=== PATIENT | male | born 1930 | race Caucasian/White ===

== ENCOUNTER 2022-03-05 17:54 | Inpatient (IN) | payer MEDICARE ==
[2022-03-05] MEDS ORDERED: Cefepime 2 GM VIAL ONE (18:28)
[2022-03-05] MEDS ORDERED: Azithromycin 500 MG VIAL ONE (18:28)
[2022-03-05 18:38] LABS: Hemoglobin 11.5 g/dL (13.5-17.5); Mean Corpuscular HGB CONC 34.2 g/dL (32.0-36.0); Mean Corpuscular Hemoglobin 30.6 pg (27.0-33.0); Mean Corpuscular Volume 89.4 fl (81.2-95.1); Mean Platelet Volume 10.4 fl (7.4-10.4); Platelet Count 112 10x3/uL (150-450); RBC Distribution Width 13.6 % (11.5-14.5); Red Blood Cell (RBC) Count 3.76 10x6/uL (4.32-5.72); White Blood Cell (WBC) Count 32.6 10x3/uL (3.5-10.5)
[2022-03-05 18:49] LABS: ALT (SGPT) 31 U/L (8-55); AST (SGOT) 24 U/L (5-34); Albumin 3.4 g/dL (3.4-4.8); Alkaline Phosphatase 88 U/L (40-110); Anion Gap 13 mmol/L (10-20); BUN (Urea Nitrogen) 21 mg/dL (8.4-25.7); Bilirubin, Total 1.2 mg/dL (0.2-1.2); Calc. Creatinine Clearance 0 mL/min (70-130); Calcium 9.2 mg/dL (7.8-10.44); Carbon Dioxide 26 mmol/L (23-31); Chloride 102 mmol/L (98-107); Estimated GFR 50; Globulin 2.9 g/dL (2.4-3.5); Glucose 143 mg/dL (83-110); Potassium 2.8 mmol/L (3.5-5.1); Protein, Total 6.3 g/dL (5.8-8.1); Sodium 138 mmol/L (136-145)
[2022-03-05 19:12] LABS: CKMB 1.6 ng/mL (0-6.6)
[2022-03-05 19:30] LABS: Bilirubin Neg (Negative); Blood, Urine 50 (Negative); Clarity Clear (Clear); Glucose, Urine (Dipstick) Normal (Negative); Ketone, Urine Negative (Negative); Leukocyte 100 (Negative); Nitrite Negative (Negative); Protein, Urine (Dipstick) 100 mg/dl (Neg-Trace); Urobilinogen Normal mg/dL (Less than 2)
[2022-03-05 19:40] LABS: Squamous Epithelial 0-3 HPF (0-3); WBC/HPF 0-3 HPF (0-3)
[2022-03-05 19:41] LABS: Bacteria/HPF 1+ HPF (None Seen); Mucous/LPF Rare LPF (<2+)
[2022-03-05] MEDS ORDERED: Potassium Chloride 20 MEQ/100 ML PREMIX BAG ONE (19:49)
[2022-03-05 20:02] LABS: SARS-CoV-2 NAA Rapid Test Not Detected (NotDetected)
[2022-03-05 20:03] LABS: Band 18 % (5-11); Lymphocytes 1 % (21-51); Monocytes 13 % (0-10); Reactive Lymphocytes 2 % (0-10)
[2022-03-05 20:07] LABS: Neutrophil 66 % (42-75)
[2022-03-05 20:12] LABS: Anisocytosis SLIGHT = 6-15 cells (100X) (0-5/hpf); Burr Cells SLIGHT = 2-5 cells (100X) (0-1/hpf); Microcytosis SLIGHT = 6-15 cells (100X) (0-5/hpf); Poikilocytosis SLIGHT = 6-15 cells (100X) (0-5/hpf)
[2022-03-05 20:13] LABS: Platelet Morphology Comment Appears Decreased
[2022-03-05 20:14] LABS: Giant Platelets SLIGHT; Hypersemented Neutrophil SLIGHT; Large Platelets SLIGHT; Vacuoles SLIGHT
[2022-03-05 20:15] LABS: MDiff Complete? YES
[2022-03-05 22:26] VITALS: BMI 20.1
[2022-03-06] MEDS ORDERED: Communication Order-Pharmacy FS PRN (00:48)
[2022-03-06] MEDS ORDERED: Calcium Carbonate 500 MG ChewTAB PO PRN (00:50)
[2022-03-06] MEDS ORDERED: Acetaminophen 325 MG TAB PO PRN (00:50)
[2022-03-06] MEDS ORDERED: Senokot S 8.6-50 MG TAB PO PRN (00:50)
[2022-03-06] MEDS ORDERED: GUAIFENESIN SF SOLN 200 MG/10 ML UDCUP PO SCH (01:00)
[2022-03-06] MEDS ORDERED: Potassium Chloride 10 MEQ in Premix Bag 1 BAG IVPB SCH (01:30)
[2022-03-06] MEDS ORDERED: Potassium Chloride 20 MEQ TAB PO SCH (01:30)
[2022-03-06 05:33] LABS: Hemoglobin 10.1 g/dL (13.5-17.5); Mean Corpuscular HGB CONC 34.2 g/dL (32.0-36.0); Mean Corpuscular Hemoglobin 31.4 pg (27.0-33.0); Mean Corpuscular Volume 91.6 fl (81.2-95.1); Mean Platelet Volume 10.4 fl (7.4-10.4); Platelet Count 93 10x3/uL (150-450); RBC Distribution Width 13.6 % (11.5-14.5); Red Blood Cell (RBC) Count 3.22 10x6/uL (4.32-5.72); White Blood Cell (WBC) Count 28.6 10x3/uL (3.5-10.5)
[2022-03-06 05:37] LABS: Anion Gap 12 mmol/L (10-20); BUN (Urea Nitrogen) 20 mg/dL (8.4-25.7); Calc. Creatinine Clearance 36 mL/min (70-130); Calcium 8.4 mg/dL (7.8-10.44); Carbon Dioxide 23 mmol/L (23-31); Chloride 106 mmol/L (98-107); Estimated GFR 60; Glucose 93 mg/dL (83-110); Potassium 3.7 mmol/L (3.5-5.1); Sodium 137 mmol/L (136-145)
[2022-03-06] MEDS: Levothyroxine Sodium 75 MCG TAB PO SCH (05:41)
[2022-03-06 06:30] LABS: Bilirubin Neg (Negative); Blood, Urine 25 (Negative); Clarity Clear (Clear); Glucose, Urine (Dipstick) 50 mg/dL (Negative); Ketone, Urine Negative (Negative); Leukocyte 25 (Negative); Nitrite Negative (Negative); Protein, Urine (Dipstick) 30 mg/dl (Neg-Trace); Urobilinogen Normal mg/dL (Less than 2)
[2022-03-06 06:32] LABS: MDiff Complete? YES
[2022-03-06 06:42] LABS: Bacteria/HPF 1+ HPF (None Seen); Squamous Epithelial 0-3 HPF (0-3)
[2022-03-06 06:44] LABS: Legionella Urinary Ag Negative (Negative); Strep pneumo Urine Ag NEGATIVE (NEGATIVE)
[2022-03-06 06:44] LABS: Magnesium 1.5 mg/dL (1.6-2.6)
[2022-03-06] MEDS: Ipratropium/Albuterol 3 ML NEB NEB SCH ×3 (07:40→18:53)
[2022-03-06] MEDS ORDERED: Magnesium 2 GM/50 ML(in water) 2 GM in Premix Bag 1 BAG IVPB SCH (08:00)
[2022-03-06 08:01] LABS: Band 6 % (5-11); Lymphocytes 11 % (21-51); Monocytes 14 % (0-10); Neutrophil 67 % (42-75); Reactive Lymphocytes 2 % (0-10)
[2022-03-06 08:04] LABS: Platelet Morphology Comment Appears Decreased; RBC Morphology Normal
[2022-03-06] MEDS: Mometasone/Formoterol 200/5 60 PUFF INH SCH ×2 (08:05→18:58)
[2022-03-06 08:30] LABS: Troponin I 0.052 ng/mL (< 0.028)
[2022-03-06] MEDS: Atorvastatin Calcium 40 MG TAB PO SCH (09:47)
[2022-03-06] MEDS: Metoprolol Tartrate 25 MG TAB PO SCH ×2 (09:47→20:12)
[2022-03-06] MEDS: Aspirin 81 mg Enteric Coated Tablet PO SCH (09:47)
[2022-03-06] MEDS: Clopidogrel Bisulfate 75 MG TAB PO SCH (09:47)
[2022-03-06] MEDS: guaiFENesin ER 600 MG TAB PO SCH ×2 (09:47→20:13)
[2022-03-06 10:44] LABS: Magnesium 1.5 mg/dL (1.6-2.6)
[2022-03-06 12:55] LABS: SARS-CoV-2 NAA Rapid Test Not Detected (NotDetected)
[2022-03-06] MEDS ORDERED: Azithromycin 500 MG VIAL ONE (19:59)
[2022-03-06] MEDS ORDERED: Sodium Chloride 0.9% 250 ML 250 ML ONE (19:59)
[2022-03-06] MEDS: cefTRIAXone\\ROCEPHIN 2 GM in Sodium Chloride 0.9% 100 ML IVPB SCH (20:14)
[2022-03-06] MEDS: Azithromycin 500 MG in Sodium Chloride 0.9% 250 ML 250 ML IVPB SCH (21:42)
[2022-03-07] MEDS: Ipratropium/Albuterol 3 ML NEB NEB SCH ×5 (01:55→19:25)
[2022-03-07 05:28] LABS: Anion Gap 13 mmol/L (10-20); BUN (Urea Nitrogen) 22 mg/dL (8.4-25.7); Calc. Creatinine Clearance 37 mL/min (70-130); Calcium 8.5 mg/dL (7.8-10.44); Carbon Dioxide 21 mmol/L (23-31); Chloride 108 mmol/L (98-107); Estimated GFR 60; Glucose 88 mg/dL (83-110); Potassium 3.3 mmol/L (3.5-5.1); Sodium 139 mmol/L (136-145)
[2022-03-07 05:53] LABS: Hemoglobin 9.8 g/dL (13.5-17.5); Mean Corpuscular HGB CONC 33.8 g/dL (32.0-36.0); Mean Corpuscular Hemoglobin 30.6 pg (27.0-33.0); Mean Corpuscular Volume 90.6 fl (81.2-95.1); Mean Platelet Volume 10.8 fl (7.4-10.4); Platelet Count 93 10x3/uL (150-450); RBC Distribution Width 13.7 % (11.5-14.5); White Blood Cell (WBC) Count 12.6 10x3/uL (3.5-10.5)
[2022-03-07] MEDS: Benzonatate 100 MG CAP PO PRN (06:23)
[2022-03-07] MEDS: Levothyroxine Sodium 75 MCG TAB PO SCH (06:23)
[2022-03-07 06:47] LABS: MDiff Complete? YES
[2022-03-07 06:48] LABS: Platelet Morphology Comment Appears Decreased
[2022-03-07 06:49] LABS: Anisocytosis MODERATE=16-30 cells (100X) (0-5/hpf); Hypochromia SLIGHT = 6-15 cells (100X) (0-5/hpf)
[2022-03-07 06:50] LABS: Burr Cells MODERATE= 6-15 cells (100X) (0-1/hpf); Vacuoles MODERATE
[2022-03-07 06:53] LABS: Band 5 % (5-11); Lymphocytes 14 % (21-51); Monocytes 8 % (0-10); Neutrophil 73 % (42-75)
[2022-03-07] MEDS: Mometasone/Formoterol 200/5 60 PUFF INH SCH ×2 (07:00→19:26)
[2022-03-07] MEDS: Atorvastatin Calcium 40 MG TAB PO SCH (08:08)
[2022-03-07] MEDS: guaiFENesin ER 600 MG TAB PO SCH ×2 (08:08→21:07)
[2022-03-07] MEDS: Metoprolol Tartrate 25 MG TAB PO SCH ×2 (08:08→21:07)
[2022-03-07] MEDS: Aspirin 81 mg Enteric Coated Tablet PO SCH (08:08)
[2022-03-07] MEDS: Clopidogrel Bisulfate 75 MG TAB PO SCH (08:08)
[2022-03-07 09:32] LABS: Magnesium 1.9 mg/dL (1.6-2.6)
[2022-03-07] MEDS ORDERED: Potassium Chloride 20 MEQ TAB PO SCH (10:00)
[2022-03-07] MEDS ORDERED: Amlodipine 5 MG TAB PO SCH (10:00)
[2022-03-07] MEDS ORDERED: cloNIDine 0.1 MG TAB PO SCH (18:00)
[2022-03-07] MEDS: cefTRIAXone\\ROCEPHIN 2 GM in Sodium Chloride 0.9% 100 ML IVPB SCH (21:08)
[2022-03-07] MEDS: Azithromycin 500 MG in Sodium Chloride 0.9% 250 ML 250 ML IVPB SCH (21:09)
[2022-03-08] MEDS: Ipratropium/Albuterol 3 ML NEB NEB SCH ×4 (02:12→17:27)
[2022-03-08 04:52] LABS: Hemoglobin 9.8 g/dL (13.5-17.5); Mean Corpuscular HGB CONC 33.8 g/dL (32.0-36.0); Mean Corpuscular Hemoglobin 30.5 pg (27.0-33.0); Mean Corpuscular Volume 90.3 fl (81.2-95.1); Mean Platelet Volume 10.9 fl (7.4-10.4); Platelet Count 101 10x3/uL (150-450); RBC Distribution Width 13.7 % (11.5-14.5); Red Blood Cell (RBC) Count 3.21 10x6/uL (4.32-5.72); White Blood Cell (WBC) Count 10.7 10x3/uL (3.5-10.5)
[2022-03-08 04:55] LABS: Anion Gap 14 mmol/L (10-20); BUN (Urea Nitrogen) 16 mg/dL (8.4-25.7); Calc. Creatinine Clearance 39 mL/min (70-130); Calcium 8.6 mg/dL (7.8-10.44); Carbon Dioxide 24 mmol/L (23-31); Chloride 107 mmol/L (98-107); Estimated GFR 65; Glucose 90 mg/dL (83-110); Potassium 3.6 mmol/L (3.5-5.1); Sodium 141 mmol/L (136-145)
[2022-03-08] MEDS: Levothyroxine Sodium 75 MCG TAB PO SCH (04:57)
[2022-03-08 05:26] LABS: MDiff Complete? YES
[2022-03-08 06:28] LABS: Band 2 % (5-11); Eosinophils 2 % (0-10); Lymphocytes 16 % (21-51); Monocytes 8 % (0-10); Neutrophil 72 % (42-75)
[2022-03-08 06:30] LABS: Anisocytosis SLIGHT = 6-15 cells (100X) (0-5/hpf); Burr Cells MODERATE= 6-15 cells (100X) (0-1/hpf); Platelet Morphology Comment Appears Decreased
[2022-03-08] MEDS: Mometasone/Formoterol 200/5 60 PUFF INH SCH ×2 (07:27→17:27)
[2022-03-08] MEDS: Benzonatate 100 MG CAP PO PRN ×2 (08:56→22:13)
[2022-03-08] MEDS: Clopidogrel Bisulfate 75 MG TAB PO SCH (08:56)
[2022-03-08] MEDS: Aspirin 81 mg Enteric Coated Tablet PO SCH (08:56)
[2022-03-08] MEDS: Metoprolol Tartrate 25 MG TAB PO SCH ×2 (08:56→20:35)
[2022-03-08] MEDS: guaiFENesin ER 600 MG TAB PO SCH ×2 (08:56→20:36)
[2022-03-08] MEDS: Atorvastatin Calcium 40 MG TAB PO SCH (08:56)
[2022-03-08] MEDS: cefTRIAXone\\ROCEPHIN 2 GM in Sodium Chloride 0.9% 100 ML IVPB SCH (20:36)
[2022-03-08] MEDS: Azithromycin 500 MG in Sodium Chloride 0.9% 250 ML 250 ML IVPB SCH (22:06)
[2022-03-09] MEDS: Ipratropium/Albuterol 3 ML NEB NEB SCH ×4 (00:10→19:01)
[2022-03-09 05:16] LABS: Hemoglobin 10.6 g/dL (13.5-17.5); Mean Corpuscular HGB CONC 34.1 g/dL (32.0-36.0); Mean Corpuscular Hemoglobin 30.5 pg (27.0-33.0); Mean Corpuscular Volume 89.4 fl (81.2-95.1); Mean Platelet Volume 10.6 fl (7.4-10.4); Platelet Count 134 10x3/uL (150-450); RBC Distribution Width 14.1 % (11.5-14.5); Red Blood Cell (RBC) Count 3.48 10x6/uL (4.32-5.72); White Blood Cell (WBC) Count 13.3 10x3/uL (3.5-10.5)
[2022-03-09 05:27] LABS: Anion Gap 12 mmol/L (10-20); BUN (Urea Nitrogen) 16 mg/dL (8.4-25.7); Calc. Creatinine Clearance 39 mL/min (70-130); Calcium 9.3 mg/dL (7.8-10.44); Carbon Dioxide 25 mmol/L (23-31); Chloride 107 mmol/L (98-107); Estimated GFR 64; Glucose 93 mg/dL (83-110); Potassium 3.7 mmol/L (3.5-5.1); Sodium 140 mmol/L (136-145)
[2022-03-09 05:46] LABS: MDiff Complete? YES
[2022-03-09 05:50] LABS: Band 5 % (5-11); Eosinophils 2 % (0-10); Lymphocytes 17 % (21-51); Metamyelocyte 4 % (0-0); Monocytes 6 % (0-10); Myelocyte 2 % (0-0); Neutrophil 64 % (42-75)
[2022-03-09 05:51] LABS: Platelet Morphology Comment Appears Adequate
[2022-03-09 05:52] LABS: RBC Morphology Normal
[2022-03-09] MEDS: Metoprolol Tartrate 25 MG TAB PO SCH ×2 (06:31→20:46)
[2022-03-09] MEDS: Levothyroxine Sodium 75 MCG TAB PO SCH (06:42)
[2022-03-09] MEDS: Mometasone/Formoterol 200/5 60 PUFF INH SCH ×2 (07:38→19:03)
[2022-03-09] MEDS: Clopidogrel Bisulfate 75 MG TAB PO SCH (09:10)
[2022-03-09] MEDS: Atorvastatin Calcium 40 MG TAB PO SCH (09:11)
[2022-03-09] MEDS: Amlodipine 5 MG TAB PO SCH (09:11)
[2022-03-09] MEDS: Aspirin 81 mg Enteric Coated Tablet PO SCH (09:11)
[2022-03-09] MEDS: guaiFENesin ER 600 MG TAB PO SCH ×2 (09:11→20:46)
[2022-03-09] MEDS ORDERED: Bisacodyl 10 MG SUPP PR SCH (10:30)
[2022-03-09] MEDS ORDERED: Fleet Enema 133 ML BOT PR SCH (10:30)
[2022-03-09] MEDS ORDERED: Fleet Enema 133 ML BOT ONE ×2 (11:07)
[2022-03-09] MEDS: cefTRIAXone\\ROCEPHIN 2 GM in Sodium Chloride 0.9% 100 ML IVPB SCH (20:46)
[2022-03-09] MEDS: Azithromycin 500 MG in Sodium Chloride 0.9% 250 ML 250 ML IVPB SCH (20:46)
[2022-03-10] MEDS: Ipratropium/Albuterol 3 ML NEB NEB SCH ×3 (00:19→14:00)
[2022-03-10 05:38] LABS: Hemoglobin 10.6 g/dL (13.5-17.5); Mean Corpuscular HGB CONC 34.1 g/dL (32.0-36.0); Mean Corpuscular Hemoglobin 30.4 pg (27.0-33.0); Mean Corpuscular Volume 89.1 fl (81.2-95.1); Mean Platelet Volume 9.9 fl (7.4-10.4); Platelet Count 134 10x3/uL (150-450); RBC Distribution Width 14.2 % (11.5-14.5); Red Blood Cell (RBC) Count 3.49 10x6/uL (4.32-5.72); White Blood Cell (WBC) Count 10.9 10x3/uL (3.5-10.5)
[2022-03-10 05:47] LABS: Anion Gap 15 mmol/L (10-20); BUN (Urea Nitrogen) 13 mg/dL (8.4-25.7); Calc. Creatinine Clearance 39 mL/min (70-130); Calcium 9.2 mg/dL (7.8-10.44); Carbon Dioxide 24 mmol/L (23-31); Chloride 106 mmol/L (98-107); Estimated GFR 64; Glucose 87 mg/dL (83-110); MDiff Complete? YES; Sodium 141 mmol/L (136-145)
[2022-03-10 05:52] LABS: Band 9 % (5-11); Eosinophils 1 % (0-10); Lymphocytes 13 % (21-51); Metamyelocyte 4 % (0-0); Monocytes 9 % (0-10); Myelocyte 4 % (0-0); Neutrophil 53 % (42-75); Reactive Lymphocytes 7 % (0-10)
[2022-03-10 05:53] LABS: Platelet Morphology Comment Appears Adequate; RBC Morphology Normal
[2022-03-10] MEDS: Levothyroxine Sodium 75 MCG TAB PO SCH (05:55)
[2022-03-10] MEDS: Mometasone/Formoterol 200/5 60 PUFF INH SCH (06:55)
[2022-03-10] MEDS: Metoprolol Tartrate 25 MG TAB PO SCH (08:05)
[2022-03-10] MEDS: Clopidogrel Bisulfate 75 MG TAB PO SCH (08:05)
[2022-03-10] MEDS: guaiFENesin ER 600 MG TAB PO SCH (08:06)
[2022-03-10] MEDS: Amlodipine 5 MG TAB PO SCH (08:06)
[2022-03-10] MEDS: Atorvastatin Calcium 40 MG TAB PO SCH (08:06)
[2022-03-10] MEDS: Aspirin 81 mg Enteric Coated Tablet PO SCH (08:06)
[2022-03-10 08:59] VITALS: TEMP 97.4
[2022-03-10] MEDS ORDERED: Losartan 25 MG TAB PO SCH (09:00)
[2022-03-10 12:49] VITALS: BP 166/75
== END 2022-03-10 15:30 | disposition home health service (06) | DRG 871 ==
LOC: CSHERS 17:54 → CSHTELE 19:57 → UNDOADMIN 19:57 → CSHTELE 03-06 00:50
PROVIDERS: ADMIT Family Medicine; ATTEND Family Medicine
DX: A41.9 Sepsis, unspecified organism (principal); J18.9 Pneumonia, unspecified organism; N17.9 Acute kidney failure, unspecified; R65.20 Severe sepsis without septic shock; Z20.822 Contact with and (suspected) exposure to COVID-19; I12.9 Hypertensive chronic kidney disease with stage 1 through stage 4 chronic kidney disease, or unspecified chronic kidney disease; E87.6 Hypokalemia; E83.42 Hypomagnesemia; F32.A Depression, unspecified; N18.31 Chronic kidney disease, stage 3a; R79.89 Other specified abnormal findings of blood chemistry; D69.6 Thrombocytopenia, unspecified; D63.1 Anemia in chronic kidney disease; Z86.718 Personal history of other venous thrombosis and embolism; Z85.46 Personal history of malignant neoplasm of prostate; Z85.118 Personal history of other malignant neoplasm of bronchus and lung; Z79.82 Long term (current) use of aspirin; Z79.899 Other long term (current) drug therapy; Z79.890 Hormone replacement therapy; Z87.01 Personal history of pneumonia (recurrent); Z87.891 Personal history of nicotine dependence; Z80.9 Family history of malignant neoplasm, unspecified
CPT/HCPCS: 36415; 36416; 71045; 80048; 80053; 81001; 81003; 81015; 82553; 83605; 83735; 84484; 85025; 87040; 87070; 87086; 87205; 87449; 87899; 93005; 94640; 94664; 94667; 94668; 94760; 96374; 96375; J0456; J0692; J0696; J1650; J3475; J3480; J3490; J7050; J7620